=== PATIENT | female | born 1945 | race Caucasian/White ===

== ENCOUNTER 2024-03-16 19:15 | Emergency (ER) | payer MEDICARE, SELFPAY ==
--- OUTSIDE RECORDS SUMMARY | 2024-03-16 19:21 | XMS_ITS | Clinical Summary ---
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 200 Tablet 4 12/13/2022 Active psyllium (METAMUCIL) 0.4 gram capsule Take 1 Capsule by mouth once daily. Active Active Problems Problem Noted Date Diagnosed Date Osteoporosis of multiple sites 02/01/2024 Overview: DEXA 01/19/24: T-scores AP: -1.5, LFN -2.6, RFN -2.4. FRAX 14.8%, 5.4%. Endocrinology referral. Has tried Fosamax and Boniva in the past, did not tolerate. Migraine syndrome 12/13/2022 Urethral polyp 12/13/2022 Overview: Saw urology. Was told nothing needed to be done if not bothersome. 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 Encounters Date Type Department Care Team Description 02/20/2024 10:44 AM CDT - 02/20/2024 11:59 PM CDT Hospital Encounter [facility] [place] [address] [place] [address] Tanisha Lucero DO Winged scapula of right side; Scapular dyskinesis 02/20/2024 Travel 02/03/2024 8:00 AM CDT Orders Only [facility] [id number] [place] [address] Lab, Farm [facility] 02/03/2024 Travel 01/29/2024 7:55 AM CDT Office Visit [facility] [id number] [place] [address] Tanisha Lucero DO Medicare ANNUAL (subsequent) Visit (Not fasting); Screening (Colonoscopy/); Immunization/Inject ion (Declined influenza) 01/28/2024 Travel 01/19/2024 8:30 AM CDT Ancillary Procedure [facility] [address] [place] [address] 01/19/2024 Travel 01/17/2024 Travel 01/15/2024 8:20 AM AQUACULTURE FARM MANAGER Ancillary Procedure [facility] [address] [place] [address] 01/15/2024 Telephone [facility] [address] [place] [address] Tanisha Lucero DO BONE DENSITY 01/14/2024 Travel 01/13/2024 Telephone [facility] [address] [place] [address] Tanisha Lucero DO Lab (No Orders) 01/13/2024 Telephone [facility] [address] [place] [address] Tanisha Lucero DO Lab (medicare wellness visit labs) from Last 3 Months Immunizations Name Administration Dates Next Due Influenza A (H1N1), Inactivated 11/21/2009 Influenza, High-dose Inactivated 09/09/2019,10/11 Influenza, High-dose Quadrivalent Inactivated ,08/31/2020 Influenza, IIV3 (Age >=3 years) 09/06/2010 Influenza, Inactivated AIIV4 (Age 65+ Years) Preserv Free 09/28/2021 Influenza, Inactivated IIV3 (Age 65+ Years) Preserv Free 10/08/2018,10/10/2017 Pneumococcal Poly,23-Valent (Pneumovax) 03/18/20 17 Pneumococcal conj 13-Valent (Prevnar 13) 015 Td, Preservative Free (age >= 7 Years) 8 Zoster (Shingrix-RZV, recombinant) 03/21/2023, Family History Medical History Relation Name Comments Acute lymphoblastic leukemia Daughter Heart failure Father Other Mother sleeping sickne ss Cancer-breast No Family History Cancer-ovarian No Family History Relation Name Status Comments Daughter Alive Father Mother Social History Tobacco Use Types Packs/Day Years Used Date Smoking Tobacco: Never Passive Smoke Exposure: Never Smokeless Tobacco: Never Tobacco Cessation:Counseling Given: Not Answered Alcohol Use Standard Drinks/Week Comments Yes 0 (1 standard drink = 0.6 oz pur e alcohol) infrequently, socially PHQ-2 Answer Date Recorded PHQ-2 TOTAL SCORE 0 01/29/2024 Social Connections Answer Date Recorded Frequency of Communication with Friends and Fami ly 0 01/28/2024 Financial Resource Strain Answer Date R ecorded Difficulty of Paying Living Expenses 3 01/28/2024 Difficulty of Paying Living Expenses Not on file 01/28/2024 Food Insecurity Answer Date Recorded Worried About Running Out of Food in the Last Ye ar 1 01/28/2024 Transportation Needs Answer Date Record ed Lack of Transportation (Medical) 1 01/28/2024 Housing Stability Answer Date Recorded Unable to Pay for Housing in the Last Year 1 01/28/2024 Sex and Gender Information Value Date Recorded Sex Assigned at Not on file Gender Identity Not on file Sexual Orientation Not on file Obstetrics History Last Filed Vital Signs Vital Sign [place] Time Taken Comments Blood Pressure 122/76 01/29/2024 8:07 AM CDT Pulse 68 01/29/2024 8:07 AM CDT Temperature - - Respiratory Rate - - Oxygen Saturation 98% 01/29/2024 8:07 AM CDT Inhaled Oxygen Concentration - - Weight 45.9 kg (101 lb 3.2 oz) 01/29/2024 8:07 A M CDT Height 158.5 cm (5' 2.4) 01/29/2024 8:07 AM CDT Body Mass Index 18.27 01/29/2024 8:07 AM CDT Plan of Treatment Upcoming Encounters Date Type Department Care Team (Late st Contact Info) Description 04/23/2024 10:30 AM CDT Office Visit [facility] [address] [place] [address] Marya Valderrama NP [address] [place] [id number] Health Maintenance Due Date Last Done Comments Tdap 1956 Influenza for age 65+ 07/11/2024 11/27/2022 , 09/28/2021, 08/31/2020, Additional history exists BMI (ht and wt on same day) for age 18+ 01/28/2025 01/29/2024, 12/27/2022, 12/13/2022 Depression screening for age 12+ 01/28/2025 01/29/2024, 12/27/2022, 12/13/2022 Medicare Wellness for age 65+ 01/29/2025 01/29/2024, 12/27/2022 Tetanus booster 11/05/2028 11/05/2018 Pneumococcal series for age 65+ Completed 7, 03/16/2015 Hepatitis C screening for ag e 18-79 Completed 12/13/2022 Zoster (shingles) series for age 50+ Completed 03/21/2023, 10/12/2021 COVID-19 vaccine series Completed 08/11/20 23, 07/22/2022, 04/12/2022, Additional history exists DEXA/DXA scan for age 65+ Completed 01/19/2024 Procedures Procedure Name Priority Date/Time Associated Diagnosis Comments GLUCOSE, FASTING Routine 02/03/2024 8:02 AM CDT Screening for diabetes mellitus (DM) LIPID PANEL W REFLEX MEASURED LDL Routine 02/03/2024 8:02 AM CDT Screening cholesterol level XR DXA BONE DENSITY 2 SITES AXIAL Routine 01/19/2024 8:43 AM CDT Osteopenia, unspecified location Other specified menopausal and perimenopausal disorders XR MAMMO SANJAY BILAT SCREEN Routine 01/15/2024 8:37 AM AQUACULTURE FARM MANAGER Visit for screening mammogram LC HCV ANTIBODY RFX TO QUANT PCR Routine 12/13/2022 8:58 AM AQUACULTURE FARM MANAGER Need for hepatitis C screening test from Last 3 Months or Most Recently Relevant to Health Maintenance Results * LIPID PANEL W REFLEX MEASURED LDL (02/03/2024 8:02 AM CDT) CHOLESTEROL,TOTAL 196 100 - 199 mg/dL 02/03/2024 3:47 PM CDT [facility] Comment: Cholesterol, Total Reference Ranges Desirable <200 mg/dL Borderline 200-239 mg/dL High >=240 mg/dL TRIGLYCERIDES 50 <150 mg/dL 02/03/2024 3:47 PM CDT [facility] HDL CHOLESTEROL 98 >40 mg/dL 3:47 PM CDT [facility] NON-HDL CHOLESTEROL 98 <145 mg/dl 02/03/2024 3:47 PM CDT [facility] CHOL/HDL RATIO 2.00 <4.50 02/03/2024 3:47 PM CDT [facility] LDL CHOLESTEROL 88 <=130 mg/dL 02/03/2024 3:47 PM CDT [facility] VLDL CHOLESTEROL 10 <=30 mg/dL 02/03/2024 3:47 PM CDT [facility] PROVIDER ORDERED STATUS RANDOM 02/03/2024 3:47 PM CDT [facility] Blood BLOOD SPECIMEN / Unknown Venipuncture / Unknown 02/03/2024 8:02 AM CDT 02/03/2024 8:02 AM CDT Tanisha Lucero DO CHEMISTRY [facility] [address] [place] [address], * GLUCOSE, FASTING (02/03/2024 8:02 AM CDT) GLUCOSE 90 70 - 99 mg/dL 02/03/2024 10:08 AM CDT [facility] Blood BLOOD SPECIMEN / Unknown Venipuncture / Unknown 02/03/2024 8:02 AM CDT 02/03/2024 8:02 AM CDT Tanisha Lcuero DO CHEMISTRY Performing Organization Address City/[facility] [address]/ZIP Co de Phone Number [facility] [address] [place] [address], * (ABNORMAL) XR DXA BONE DENSITY 2 SITES AXIAL (01/19/2024 8:43 AM CDT) Anatomical Region Laterality Modality Spine, HIPS, HIPL, HIPR Other Impressions 01/23/2024 9:20 AM CDT Osteoporosis. RECOMMENDATIONS: The National Osteoporosis Foundation recommends pharmacologic treatment for patients with T-scores of -2.5 or less, patients with prior history of fragility fractures, or patients with 10-year probability of greater than 3% at hips or greater than 20% of suffering major osteoporotic fractures. Recommend continued optimization of calcium and vitamin D intake through dietary means and/or supplementation and regular exercise. Consider pharmacologic therapy for osteoporosis. Follow-up bone density reading in 2 years if therapy initiated to assess therapeutic efficacy. Stephani Barr PA-C [facility] 01/23/2024 Narrative 01/23/2024 9:20 AM CDT For Patients: Results are automatically released to your [employer] account once available, in compliance with federal regulations. This means that you may see your results before your provider has had a chance to review them. Please allow 2-3 business days for your provider to comment on the results. XR DXA Bone Mineral Density (BMD) EXAM LOCATION: [facility] [address] [facility] [address] PATIENT NAME: Parris Lizarraga DATE OF : 1945 EXAM DATE: 01/19/2024 REQUESTING PROVIDER: Tanisha Lucero DO GENDER AT : female HEIGHT: 5' 2.6 (12/27/2022) WEIGHT: ??101 lb (12/27/2022) MENOPAUSAL STATUS: Postmenopausal RACE/ETHNICITY: White RISK FACTORS: Weight < 127 lbs. and White Race CURRENT MEDICATION FOR BONE LOSS: NONE INDICATION: Follow-up of existing osteopenia and Post-Menopause COMPARISON DATE(S): None DXA scans are compared to prior studies for a patient only when the two (or more) studies were performed on the same scanner. It is not possible to compare data generated on one scanner to data from another because there are not standards in DXA equipment. This applies even if the two scanners are made by the same paper bag making machinist. PROCEDURE: Dual-energy x-ray absorptiometry performed with routine technique. Reporting is completed in the form of a T-score. The T-score represents the standard deviation from peak bone mass based on young healthy adult. A Z-score is used for diagnosis in premenopausal women, and for men under the age of 50. FINDINGS: RESULT LUMBAR SPINE L1 - L4 BMD: 1.015 g/cm2 T-Score: - 1.5 Z-Score: + 1.0 Change from prior: ??None RESULTS FEMUR Left femoral neck BMD: 0.682 g/cm2 T-Score: - 2.6 Z-Score: - 0.2 Change from prior: ??None Right femoral neck BMD: 0.707 g/cm2 T-Score: - 2.4 Z-Score: + 0.0 Change from prior: ??None Left hip BMD: 0.730 g/cm2 T-Score: - 2.2 Z-Score: + 0.1 Change from prior: ??None Right hip BMD: 0.716 g/cm2 T-Score: - 2.3 Z-Score: + 0.0 Change from prior: ??None WHO criteria: Normal: T-score at or above -1 SD Osteopenia: T-score between -1.1 and -2.4 SD Osteoporosis: T-score at or below -2.5 SD FRAX RISK CALCULATION (USED FOR OSTEOPENIA ONLY): 10-year probability of major osteoporotic fracture: 14.8%. 10-year probability of hip fracture: 5.4%. Tanisha Lucero DO DEXA * XR MAMMO SANJAY BILAT SCREEN (01/15/2024 8:37 AM AQUACULTURE FARM MANAGER) Anatomical Region Laterality Modality BREASTS, Breast Left, Breast Right Bilateral Mammography Impressions 01/15/2024 2:38 PM AQUACULTURE FARM MANAGER ??There is no radiographic evidence for malignancy. ??Recommend annual mammograms. MAMMOGRAM ASSESSMENT: ??ACR 1 Negative PATIENTS: You will also receive a letter with your examination results in an easy to read format. ??If you have questions about your results, please contact your referring provider. Narrative 01/15/2024 2:38 PM AQUACULTURE FARM MANAGER For Patients: As a result of the Century Cures Act, medical imaging exams and procedure reports are released immediately into your electronic medical record. You may view this report before your referring provider. If you have questions, please contact your health care provider. XR MAMMO SANJAY BILAT SCREEN [[id number]] CLINICAL HISTORY: ??This is an asymptomatic 78 y.o. patient. INDICATION FOR EXAM: Mammogram Screening. TECHNIQUE: CC & MLO views were obtained. ??This study was evaluated with the assistance of Computer-Aided Detection. Breast Tomosynthesis was used in interpretation. COMPARISON FILM: Yes 12/19/22 [employer] ?? FINDINGS: ??The breasts have scattered areas of fibroglandular density. There are no dominant masses, suspicious micro calcifications or areas of architectural distortion. Tanisha Lucero DO MAMMO * LC HCV ANTIBODY RFX TO QUANT PCR (12/13/2022 8:58 AM AQUACULTURE FARM MANAGER) HCV Ab <0.1 0.0 - 0.9 s/co ratio 12/18/2022 5:10 AM AQUACULTURE FARM MANAGER [facility] Blood BLOOD SPECIMEN / Unknown Venipuncture / Unknown 12/13/2022 8:58 AM AQUACULTURE FARM MANAGER 12/13/2022 9:01 AM AQUACULTURE FARM MANAGER Narrative [facility] - 12/18/2022 5:10 AM AQUACULTURE FARM MANAGER Performed at: ??01 - [facility] [place] [address] ??[id number] Dermatology Physician: Parviz Hamilton MD, Phone: ??[phone] [facility]) [address] [place] [address], from Last 3 Months or Most Recently Relevant to Health Maintenance Care Teams Platen Press Operator Apprentice Relationship Specialty Start Date End Date [facility] PCP - General 01/13/24
[2024-03-16 19:34] VITALS: BP 134/77; PULSE 60; RESP 18; TEMP 36.8; O2SAT 99; BMI 18.1
--- NOTE | 2024-03-16 19:44 | ED.GENADULT ---
HPI - General Adult General Chief complaint: Nausea/Vomiting Stated complaint: Vomiting, extreme headache, colonoscopy 03/18 Time Seen by Provider: 03/16/24 19:22 History of Present Illness HPI narrative: This 78-year-old female comes in reporting migraine-type headache starting several days ago but worsening recently. She has a history of migraine headaches and states that this 1 is similar except that is prolonged and more intense. She normally does not vomit but states that she vomited about 5 times today and did so also in some previous days. She does not report any fevers. She does not have any pain emanating down her back. She does not show any sign or report any signs of neurologic deficit. Related Data Home Medications Medication Instructions Recorded Confirmed calcium carbonate 500 mg-vitamin 1 tab PO DAILY 09/10/22 03/16/24 D3 15 mcg (600 unit) tablet cholecalciferol (vitamin D3) 10 400 unit PO QDAY 09/10/22 03/16/24 mcg (400 unit) capsule Allergies Allergy/AdvReac Type Severity Reaction Status Date / Time prednisone Allergy Mild Unknown Verified 03/16/24 19:36 amoxicillin Allergy Unknown rash and Verified 03/16/24 19:36 itching all over sodium AdvReac Severe migraines Verified 03/16/24 19:36 Review of Systems Status of ROS: Reports: 10 or more systems reviewed and unremarkable except as noted in History and below Narrative: Constitutional: No fevers, no weight gain or loss. Eyes: No discharge. No vision changes. HENT: No congestion, no sore throat, no ear pain. Cardiovascular: No chest pain, no palpitations. Respiratory: No shortness of breath, no wheezes, no cough. Gastrointestinal: No abdominal pain, no vomiting, no diarrhea. Genitourinary: No dysuria, no hematuria. Musculoskeletal: Normal range of motion. Skin: No rashes, no pruritis. Neurological: No dizziness, weakness, sensory change, speech change. Endo/Heme/Allergies: No bruising or bleeding. No polydipsia. Pysch: no suicidality, no anxiety, no insomnia. All other systems reviewed and are negative. [facility] Medical History (Updated 03/16/24 @ 22:05 by Adam Adames MD) Exposure to severe acute respiratory syndrome coronavirus 2 (SARS-CoV-2) ?Z20.822 - Contact with and (suspected) exposure to COVID-19 (ICD-10) Surgical History (Updated 09/09/22 @ 21:05 by Manuela Billy) History of dilation and curettage ?Z98.890 - Other specified postprocedural states (ICD-10) History of colonoscopy ?Z98.890 - Other specified postprocedural states (ICD-10) Social History Smoking Status: Never smoker How often do you have a drink containing alcohol: never How often do you have six or more drinks on one occasion: Never AUDIT-C Alcohol total score: 0 Non-prescribed substance use: denies use Exam Narrative: Exam Narrative: Constitutional: Well-developed, well-nourished, no acute distress. HEENT: Normocephalic, atraumatic. Neck: Normal range of motion. Nontender. Supple. Heart: Regular. No murmurs. Normal rate. Intact distal pulses. Lungs: Clear to auscultation. No chest discomfort. No wheezes, rhonchi, or rales. Abdomen: Normal bowel sounds. Nontender. No rebound tenderness. Genitalia: Deferred. Back: No midline tenderness. Normal range of motion. Extremities: Normal range of motion. No injury. Skin: Intact. No rash. Warm. No erythema or pallor. Neurologic: No altered sensation. No weakness. Alert and oriented. Psychiatric: No suicidality. No anxiety or depression. No insomnia. Nursing notes and vitals signs are reviewed. Const: Vital Signs, click to edit/add: Vital Signs - 24 hr 03/16/24 19:34 03/16/24 20:44 Temperature 98.2 F Pulse Rate [Right Pulse Oximeter] 60 56 L Respiratory Rate 18 Blood Pressure [Le ft Upper Arm] 134/77 Pulse Oximetry 99 98 Oxygen Delivery Me thod Room Air Room Air Course Vital Signs Vital signs: Initial Vital Signs Temperature 98.2 F 03/16/24 19:34 Temperature Source Temporal Artery Scan 03/16/24 19:34 Pulse Rate 60 03/16/24 19:34 Respiratory Rate 18 03/16/24 19:34 Blood Pressure 134/77 03/16/24 19:34 Blood Pressure Mean 96 03/16/24 19:34 Blood Pressure Position Sitting 03/16/24 19:34 Pulse Oximetry 99 03/16/24 19:34 Oxygen Delivery Method Room Air 03/16/24 19:34 Vital Signs Temperature 98.2 F 03/16/24 19:34 Pulse Rate 60 03/16/24 19:34 Respiratory Rate 18 03/16/24 19:34 Blood Pressure 134/77 03/16/24 19:34 Pulse Oximetry 99 03/16/24 19:34 Oxygen Delivery Method Room Air 03/16/24 19:34 Temperature 98.2 F 03/16/24 19:34 Pulse Rate 56 L 03/16/24 20:44 Respiratory Rate 18 03/16/24 19:34 Blood Pressure 134/77 03/16/24 19:34 Pulse Oximetry 98 03/16/24 20:44 Oxygen Delivery Method Room Air 03/16/24 20:44 Medications Administered Medications: Discontinued Medications Generic Name Dose Route Start Last Admin Trade Name Shannan PRN Reason Stop Dose Admin Diphenhydramine HCl 25 mg 03/16/24 19:43 03/16/24 20:19 Diphenhydramine 50 Mg/Ml Inj IVP 03/16/24 19:44 25 mg ONCE ONE Administration Sodium Chloride 1,000 mls @ 1,000 mls/hr 03/16/24 19:45 03/16/24 21:14 0.9 % Sodium Chloride 1000 Ml IV 03/16/24 20:44 Infused .Q1H MARIEL Infusion Ketorolac Tromethamine 15 mg 03/16/24 19:43 03/16/24 20:19 Ketorolac 30 Mg/Ml Inj IVP 03/16/24 19:44 15 mg ONCE ONE Administration Ondansetron HCl 4 mg 03/16/24 19:43 03/16/24 20:19 Ondansetron 2 Mg/Ml Inj IVP 03/16/24 19:44 4 mg ONCE ONE Administration Medical Decision Making MDM Narrative Medical decision making narrative: This patient comes in with symptoms typical of a migraine headache. She has a history of these and she is not showing any signs of symptoms that would indicate a need for workup with imaging or labs. An IV was established where she received a L of normal saline, Benadryl 25 mg, Toradol 15 mg, and Zofran 4 mg. This brought sufficient relief to her symptoms. The patient states that she feels okay to return home. She did receive [facility] prescriptions for Toradol and Zofran. Discharge Plan Discharge Clinical Impression: Migraine Patient Disposition: Home, Self-Care Condition: Stable Additional Instructions: Take medication as needed and indicated. Follow up with MD return if worsening. Prescriptions: No Action cholecalciferol (vitamin D3) 10 mcg (400 unit) capsule 400 unit PO QDAY calcium carbonate-vitamin D3 500 mg-15 mcg (600 unit) tablet 1 tab PO DAILY Follow Up/Referrals: Luis Barger MD [Staff Physician] - Stand Alone Forms: [employer] Info Instructions
--- OUTSIDE RECORDS SUMMARY | 2024-03-16 20:03 | XMS_ITS | Clinical Summary ---
Author Name Unknown Organization [employer] [facility] Address [place], [place] [address] Care Team Providers Care Lamina Searcher Name Role Phone [facility] Primary Care Provider Unavailabl e Allergies Active [...] [facility] [place] [address] [place] [address] Tanisha Lucero DO Winged scapula of right side; Scapular dyskinesis 02/20/2024 Travel 02/03/2024 8:00 AM CDT Orders Only [facility] [id number] [place] [id number] Lab, [facility] 02/03/2024 Travel 01/29/2024 7:55 AM CDT Office Visit [facility] [id number] [place] [address] Tanisha Lucero DO Medicare ANNUAL (subsequent) Visit (Not fasting); Screening (Colonoscopy/); Immunization/Inject ion (Declined influenza) 01/28/2024 Travel 01/19/2024 8:30 AM CDT Ancillary Procedure [facility] [address] [place] [address] 01/19/2024 Travel 01/17/2024 Travel 01/15/2024 8:20 AM GATHERING MACHINE SETTER Ancillary Procedure [facility] [address] [place] [address] 01/15/2024 Telephone [facility] [address] [place] [address] Tanisha Lucero DO BONE DENSITY 01/14/2024 Travel 01/13/2024 Telephone [facility] [address] [facility] [place] [address] Tanisha Lucero DO Lab (No Orders) 01/13/2024 Telephone [facility] [address] [place] [address] Tanisha Lucero DO Lab (medicare wellness visit [...] [address] [place] [address] Marya Valderrama NP [address] [place] [id number] Health Maintenance Due Date Last Done Comments [...] SANJAY BILAT SCREEN Routine 01/15/2024 8:37 AM GATHERING MACHINE SETTER Visit for screening mammogram LC HCV ANTIBODY RFX TO QUANT PCR Routine 12/13/2022 8:58 AM GATHERING MACHINE SETTER Need for hepatitis C screening test from Last 3 Months or Most Recently Relevant to Health Maintenance Results * LIPID PANEL W REFLEX MEASURED LDL (02/03/2024 8:02 AM CDT) CHOLESTEROL,TOTAL 196 100 - 199 mg/dL 02/03/2024 3:47 PM CDT [facility] Comment: Cholesterol, Total Reference Ranges Desirable <200 mg/dL Borderline 200-239 mg/dL High >=240 mg/dL TRIGLYCERIDES 50 <150 mg/dL 02/03/2024 3:47 PM CDT [facility] HDL CHOLESTEROL 98 >40 mg/dL 3:47 PM CDT [facility] NON-HDL CHOLESTEROL 98 <145 mg/dl 02/03/2024 3:47 PM CDT [facility] CHOL/HDL RATIO 2.00 <4.50 02/03/2024 3:47 PM CDT [facility] LDL CHOLESTEROL 88 <=130 mg/dL 02/03/2024 3:47 PM CDT [facility] VLDL CHOLESTEROL 10 <=30 mg/dL 02/03/2024 3:47 PM CDT [facility] PROVIDER ORDERED STATUS RANDOM 02/03/2024 3:47 PM CDT [facility] Blood BLOOD SPECIMEN / Unknown Venipuncture / Unknown 02/03/2024 8:02 AM CDT 02/03/2024 8:02 AM CDT Tanisha Lucero DO CHEMISTRY [facility] [address] [place] [address], * GLUCOSE, FASTING (02/03/2024 8:02 AM CDT) GLUCOSE 90 70 - 99 mg/dL 02/03/2024 10:08 AM CDT [facility] Blood BLOOD SPECIMEN / Unknown Venipuncture / Unknown 02/03/2024 8:02 AM CDT 02/03/2024 8:02 AM CDT Tanisha Lucero DO CHEMISTRY Performing Organization Address City/[facility]/ZIP Co de Phone Number [facility] [address] [place] [address], * (ABNORMAL) XR DXA BONE DENSITY 2 [...] to assess therapeutic efficacy. Stephani Barr PA-C [facility] [employer] 01/23/2024 Narrative 01/23/2024 9:20 AM CDT For Patients: Results are automatically released to your Tumblr ([employer]) account once available, in compliance with federal regulations. This means that you may see your results before your provider has had a chance to review them. Please allow 2-3 business days for your provider to comment on the results. XR DXA Bone Mineral Density (BMD) EXAM LOCATION: [facility] [address] [facility] [address] PATIENT NAME: Parris Lizarraga DATE OF : [...] two scanners are made by the same security researcher. PROCEDURE: Dual-energy x-ray absorptiometry performed with routine [...] MAMMO SANJAY BILAT SCREEN (01/15/2024 8:37 AM GATHERING MACHINE SETTER) Anatomical Region Laterality Modality BREASTS, Breast Left, Breast Right Bilateral Mammography Impressions 01/15/2024 2:38 PM GATHERING MACHINE SETTER ??There is no radiographic evidence for malignancy. ??Recommend annual mammograms. MAMMOGRAM ASSESSMENT: ??ACR 1 Negative PATIENTS: You will also receive a letter with your examination results in an easy to read format. ??If you have questions about your results, please contact your referring provider. Narrative 01/15/2024 2:38 PM GATHERING MACHINE SETTER For Patients: As a result of the Century Cures Act, medical imaging exams and procedure reports are released immediately into your electronic medical record. You may view this report before your referring provider. If you have questions, please contact your health care provider. XR MAMMO SANJAY BILAT SCREEN [[id number]] CLINICAL HISTORY: ??This is an asymptomatic 78 y.o. patient. INDICATION FOR EXAM: Mammogram Screening. TECHNIQUE: CC & MLO views were obtained. ??This study was evaluated with the assistance of Computer-Aided Detection. Breast Tomosynthesis was used in interpretation. COMPARISON FILM: Yes 12/19/22 Tumblr ?? FINDINGS: ??The breasts have scattered areas of fibroglandular density. There are no dominant masses, suspicious micro calcifications or areas of architectural distortion. Tanisha Lucero DO MAMMO * LC HCV ANTIBODY RFX TO QUANT PCR (12/13/2022 8:58 AM GATHERING MACHINE SETTER) HCV Ab <0.1 0.0 - 0.9 s/co ratio 12/18/2022 5:10 AM GATHERING MACHINE SETTER [facility] Blood BLOOD SPECIMEN / Unknown Venipuncture / Unknown 12/13/2022 8:58 AM GATHERING MACHINE SETTER 12/13/2022 9:01 AM GATHERING MACHINE SETTER Narrative [facility] - 12/18/2022 5:10 AM GATHERING MACHINE SETTER Performed at: ??01 - [facility] [place] [address] ??[id number] Community Organization Director: Parviz Hamilton MD, Phone: ??[phone] Lesly [facility] ([facility]) [facility] [place] [address], from Last 3 Months or Most Recently Relevant to Health Maintenance Care Teams Lamina Searcher Relationship Specialty Start Date End Date [facility] PCP - General 01/13/24
[2024-03-16] MEDS: diphenhydrAMINE 50 MG/ML inj 25 MG IVP (20:19)
[2024-03-16] MEDS: ONDANSETRON 2 MG/ML inj 4 MG IVP (20:19)
[2024-03-16] MEDS: KETOROLAC 30 MG/ML inj 15 MG IVP (20:19)
[2024-03-16] MEDS: 0.9 % SODIUM CHLORIDE 1000 ml 1,000 ML IV (20:19)
[2024-03-16 20:44] VITALS: PULSE 56; O2SAT 98
[2024-03-16 22:13] VITALS: BP 133/70; PULSE 54; RESP 16; O2SAT 98
== END 2024-03-16 22:14 | disposition home or self-care (01) ==
PROVIDERS: Emergency Provider Emergency Medicine Emergency Medical Services; PCP Family Medicine
DX: G43.909 Migraine, unspecified, not intractable, without status migrainosus (principal)
CPT/HCPCS: 96374; 96375; 99284; J1200; J1885; J2405; J7030